=== PATIENT | female | born 1975 | race Caucasian/White ===

== ENCOUNTER 2018-09-23 17:07 | Emergency (ER) | payer SELFPAY ==
[2018-09-23 17:07] VITALS: BMI 33.6
[2018-09-23] MEDS ORDERED: Lactated Ringer's 1,000 ML IV STA (18:07)
--- NOTE | 2018-09-23 18:28 | ED PDOC ---
HPI: Female Pain Time Seen by Provider: 09/23/18 17:29 Chief Complaint (Nursing): Female Genitourinary Chief Complaint (Provider): Female Genitourinary History Per: Patient History/Exam Limitations: no limitations Onset/Duration Of Symptoms: Days (x11) Current Symptoms Are (Timing): Still Present Additional Complaint(s): 43 year old female with a history of anemia and fibroids presents to the ED with vaginal bleeding since September 12. Patient reports she bleeds through 5 or more pads a day with clots and occasional clots. She has had to be transfused in the past, last time was January 2018. She is currently scheduled to have a myomectomy. She said over the last two day she has been experiencing lightheadedness, dyspnea on exertion, fatigue, and generalized weakness and is concerned she needs a transfusion. [employer] [facility]: from the [facility] PMD: Dr. Sanjeev Manzano Abnormal Vaginal Bleeding: Yes Past Medical History Reviewed: Historical Data, Nursing Documentation, Vital Signs Vital Signs: Last Vital Signs Temp 98.4 F 09/23/18 17:16 Pulse 85 09/23/18 17:16 Resp 18 09/23/18 17:16 BP 126/84 09/23/18 17:16 Pulse Ox 99 09/23/18 17:16 - Medical History PMH: Anemia Other PMH: fibroids - Surgical History Surgical History: No Surg Hx - Family History Family History: States: Other Other Family History: fibroids - Social History Current smoker - smoking cessation education provided: No Ex-Smoker (has not smoked in the last 12 months): No Alcohol: Occasional - Immunization History Hx Tetanus Toxoid Vaccination: No Hx Influenza Vaccination: No Hx Pneumococcal Vaccination: No - Home Medications Home Medications: Ambulatory Orders Medication Instructions Recorded MedroxyPROGESTERone [Provera] 1 tab PO DAILY 12/18/17 Iron 65 mg PO DAILY 12/29/17 Naproxen Sodium 550 mg PO Q12 PRN 12/29/17 Benzonatate [Tessalon Perles] 100 mg PO TID #20 sgl 02/21/18 Cetirizine HCl [Zyrtec] 10 mg PO DAILY #20 capsule 02/21/18 Ibuprofen [Motrin] 600 mg PO Q6H #20 tab 02/21/18 Mometasone Furoate [Nasonex] 2 spray NS DAILY #1 bottle 02/21/18 Tranexamic Acid 1,300 mg PO TID #15 dose 09/23/18 - Allergies Allergies/Adverse Reactions: Allergies Allergy/AdvReac Type Severity Reaction Status Date / Time No Known Allergies Allergy Verified 09/23/18 17:14 Review of Systems ROS Statement: Except As Marked, All Systems Reviewed And Found Negative (and as per HPI) Constitutional: Positive for: Weakness (generalized), Other (fatigue) Cardiovascular: Positive for: Light Headedness Respiratory: Positive for: Other (dyspnea on exertion) Genitourinary Female: Positive for: Vaginal Bleeding Physical Exam - Reviewed Nursing Documentation Reviewed: Yes Vital Signs Reviewed: Yes - Physical Exam Appears: Positive for: No Acute Distress (tired) Head Exam: Positive for: ATRAUMATIC, NORMOCEPHALIC Skin: Positive for: Warm, Dry. Negative for: Pallor Eye Exam: Positive for: EOMI, PERRL ENT: Negative for: Pharyngeal Erythema, Tonsillar Exudate Neck: Positive for: Painless ROM, Supple Cardiovascular/Chest: Positive for: Regular Rate, Rhythm. Negative for: Murmur Respiratory: Positive for: Normal Breath Sounds. Negative for: Respiratory Distress Gastrointestinal/Abdominal: Positive for: Soft, Tenderness (mild suprapubic tenderness to palpation ). Negative for: Mass, Distended, Guarding, Rebound Back: Positive for: Normal Inspection. Negative for: Decreased ROM Extremity: Positive for: Normal ROM. Negative for: Deformity Lymphatic: Negative for: Adenopathy Neurologic/Psych: Positive for: Alert. Negative for: Motor/Sensory Deficits - Laboratory Results Result Diagrams: 09/23/18 18:47 09/23/18 18:47 - ECG O2 Sat by Pulse Oximetry: 99 (RA) Pulse Ox Interpretation: Normal Medical Decision Making Medical Decision Making: Time: 1806 Initial Impression: Vaginal Bleeding Rule out severe anemia Initial Plan: --Type and screen --CMP --Ferritin --Iron & TIBC --Urine dip --Urine preg --CBC with differentials --PTT --PT --Lactated ringers 745p Labs demonstrate minimal anemia. No clinically significant abnormalities DW pt findings. Will rx TXA and pt to followup at clinic this week Scribe Attestation: Documented by Shilpa Menon, acting as a scribe for Ida Alamo MD Provider Scribe Attestation: All medical record entries made by the Scribe were at my direction and personally dictated by me. I have reviewed the chart and agree that the record accurately reflects my personal performance of the history, physical exam, medical decision making, and the department course for this patient. I have also personally directed, reviewed, and agree with the discharge instructions and disposition Disposition - Clinical Impression Clinical Impression: Vaginal bleeding, Fibroid Counseled Patient/Family Regarding: Studies Performed, Diagnosis, Need For Followup, Rx Given - Disposition [facility] (FOLLOW UP AT CLINIC SOON POSSIBLE FOR FURTHER EVALUATION AND MANAGEMENT) Disposition: Routine/Home Disposition Time: 19:00 Condition: STABLE Prescriptions: Tranexamic Acid 1,300 mg PO TID #15 dose Instructions: Uterine Fibroids (DC) Forms: [facility] ED School/Work Excuse
[2018-09-23 19:04] LABS: PROTHROMBIN TIME 11.1 Seconds (9.8-13.1)
[2018-09-23 19:07] LABS: PARTIAL THROMBOPLASTIN TIME 28.8 Seconds (25.6-37.1)
[2018-09-23 19:08] LABS: BASO # 0.1 K/uL (0.0-0.2); BASO % 0.8 % (0.0-2.0); EOS # 0.1 K/uL (0.0-0.7); EOS % 1.7 % (0.0-4.0); HEMOGLOBIN 10.3 g/dL (12.0-16.0); LYMPH # 2.9 K/uL (1.0-4.3); LYMPH % 34.4 % (20.0-40.0); MEAN CELL VOLUME 73.8 fl (81.0-99.0); MEAN CORPUSCULAR HEMOGLOBIN 23.4 pg (27.0-31.0); MEAN CORPUSCULAR HGB CONC 31.7 g/dL (33.0-37.0); MEAN PLATELET VOLUME 9.5 fl (7.2-11.7); MONO # 0.6 K/uL (0.0-0.8); MONO % 6.6 % (0.0-10.0); NEUT # 4.8 K/uL (1.8-7.0); NEUT % 56.5 % (50.0-75.0); RBC 4.4 Mil/uL (3.80-5.20); RED CELL DISTRIBUTION WIDTH 16.6 % (11.5-14.5); WHITE BLOOD COUNT 8.5 K/uL (4.8-10.8)
[2018-09-23 19:10] LABS: IRON 49 ug/dL (37-170)
[2018-09-23 19:12] LABS: ALB/GLOB RATIO 1.2 (1.0-2.1); ALT/SGPT 61 U/L (9-52); AST/SGOT 44 U/L (14-36); BLOOD UREA NITROGEN 12 mg/dl (7-17); CALCIUM 9.5 mg/dL (8.4-10.2); GFR NON-AFRICAN AMERICAN > 60
[2018-09-23 19:19] LABS: % IRON SATURATION 10 % (20-55); TOTAL IRON BINDING CAPACITY 475 ug/dL (250-450)
[2018-09-23 19:48] LABS: FERRITIN 7.1 ng/Ml (6.24-137.0)
[2018-09-24 00:52] VITALS: BP 116/72; PULSE 81; RESP 18; TEMP 98.2; O2SAT 99
== END 2018-09-23 21:35 | disposition home or self-care (01) ==
LOC: H.ER 17:07
DX: N93.9 Abnormal uterine and vaginal bleeding, unspecified (principal); D64.9 Anemia, unspecified
CPT/HCPCS: 80053; 81025; 82728; 83540; 83550; 85025; 85610; 85730; 86850; 86900; 99285; J7120

== ENCOUNTER 2018-10-15 08:11 | Day surgery (SDC) | payer SELFPAY ==
[2018-10-08 19:34] VITALS: BMI 32.0
[2018-10-15] MEDS ORDERED: Lactated Ringer's 1,000 ML IV ONE (08:58)
[2018-10-15 09:03] LABS: BASO # 0.1 K/uL (0.0-0.2); BASO % 0.9 % (0.0-2.0); EOS # 0.2 K/uL (0.0-0.7); EOS % 2.3 % (0.0-4.0); HEMOGLOBIN 11.4 g/dL (12.0-16.0); LYMPH # 2.5 K/uL (1.0-4.3); LYMPH % 33.5 % (20.0-40.0); MEAN CELL VOLUME 73.6 fl (81.0-99.0); MEAN CORPUSCULAR HEMOGLOBIN 23.1 pg (27.0-31.0); MEAN CORPUSCULAR HGB CONC 31.4 g/dL (33.0-37.0); MEAN PLATELET VOLUME 9.4 fl (7.2-11.7); MONO # 0.4 K/uL (0.0-0.8); MONO % 5.6 % (0.0-10.0); NEUT # 4.3 K/uL (1.8-7.0); NEUT % 57.7 % (50.0-75.0); NRBC % 0.2 % (0.0-0.0); RBC 4.91 Mil/uL (3.80-5.20); RED CELL DISTRIBUTION WIDTH 16.6 % (11.5-14.5); WHITE BLOOD COUNT 7.5 K/uL (4.8-10.8)
[2018-10-15] MEDS ORDERED: Propofol 10 mg/ml Inj (20 ML) ONE (09:13)
[2018-10-15] MEDS ORDERED: Midazolam 2 MG/2 ML VIAL ONE (10:32)
[2018-10-15] MEDS ORDERED: Dexamethasone 4 mg/1 ml ONE (10:37)
[2018-10-15] MEDS ORDERED: Silver Nitrate Topical - Stick ONE (11:13)
[2018-10-15] MEDS ORDERED: HYDROmorphone 0.5 mg/0.5 ml ISec IVP PRN (11:26)
[2018-10-15] MEDS ORDERED: Lactated Ringer's 1,000 ML IV SCH (11:30)
[2018-10-15 12:34] VITALS: TEMP 97.7
[2018-10-15 12:51] VITALS: RESP 18
[2018-10-15 14:49] VITALS: O2SAT 98
[2018-10-15 15:39] VITALS: BP 117/74; PULSE 87
--- NOTE | 2018-10-15 23:19 | OP ---
PROCEDURE DATE: 10/15/2018 PREOPERATIVE DIAGNOSIS: Heavy menstrual bleeding. POSTOPERATIVE DIAGNOSIS: Heavy menstrual bleeding. PROCEDURE: Hysteroscopy with endometrial ablation with Novasure. SURGEON: Sonny Spain MD ESTIMATED BLOOD LOSS: 5 mL. INTRAVENOUS FLUIDS: 700 mL lactated Ringer's. URINE OUTPUT: Approximately 20 mL, drained with a red rubber catheter. Cavity length for procedure is 5.5 cm, cavity width 4.6 cm, power level 139 gutierres. ABLATION TIME: 1 minute 12 seconds. FINDINGS: The uterus was anteverted with normal size. Adnexa were normal bilaterally. No mass was palpated upon hysteroscopic exam. Proliferative endometrium was seen and no other direct intraluminal lesions noted. DESCRIPTION OF PROCEDURE: The patient was taken to the operating room and given anesthesia without difficulty. She was prepped and draped in the normal sterile fashion in the dorsal lithotomy position. A bimanual exam was performed with the findings of above. Following this, a weighted speculum was placed in the patient's vagina. The anterior lip of the cervix was grasped with a single tooth tenaculum. The uterus was then serially dilated and sounded to approximately 9 cm. The hysteroscope was then introduced into the uterine cavity using sterile saline as a distending media with the attached camera. The endometrial cavity revealed proliferative endometrium throughout, and no direct intraluminal lesions were seen. The ostia were noted at the coronal areas bilaterally. Pictures of the endometrial cavity were then taken, and the hysteroscope was then removed. The Novasure device was then activated and unable to check all parameters and make sure it was functioning well. The ovary was opened outside of the patient and appeared intact. The cavity length was then assessed using the sound, and this value was then placed in the device. Following this, the Novasure was then introduced. The cavity width was assessed, and this value was also placed in the device. The endometrial cavity was then assessed, and all was found to be intact. The Novasure device was then enabled, and ablation was undertaken for 1 minute 12 seconds. Following this, the device was then removed. The hysteroscopy was again performed, and a good ablation was then noted throughout. Pictures were again taken. All instruments were then removed. Small amount of bleeding was seen at the tenaculum site, and this was stopped with silver nitrate. The patient was then repositioned, awakened from anesthesia and transferred to recovery room in stable condition. She would be discharged home today with Motrin for pain and informed to continue pelvic rest and follow up in the office in two weeks for postop evaluation. Sonny Spain MD
== END 2018-10-15 16:30 | disposition home or self-care (01) ==
LOC: H.OPSURG 08:11
PROVIDERS: ATTEND Obstetrics & Gynecology
DX: N93.9 Abnormal uterine and vaginal bleeding, unspecified (principal); D25.9 Leiomyoma of uterus, unspecified; K21.9 Gastro-esophageal reflux disease without esophagitis; N92.0 Excessive and frequent menstruation with regular cycle
CPT/HCPCS: 36415; 58563; 85025; 86850; 86900; J1100; J1885; J2001; J2250; J2405; J2704; J2765; J3010; J7030; J7120

== ENCOUNTER 2018-10-17 09:55 | Emergency (ER) | payer SELFPAY ==
[2018-10-17 09:59] VITALS: BMI 32.0
[2018-10-17 10:00] VITALS: O2SAT 100
[2018-10-17] MEDS ORDERED: Sodium Chloride 0.9% 1,000 ML IV STA (10:16)
[2018-10-17 10:39] LABS: BASO # 0.1 K/uL (0.0-0.2); EOS # 0.1 K/uL (0.0-0.7); EOS % 1.4 % (0.0-4.0); HEMOGLOBIN 10.2 g/dL (12.0-16.0); LYMPH # 3.3 K/uL (1.0-4.3); LYMPH % 39.4 % (20.0-40.0); MEAN CELL VOLUME 74.8 fl (81.0-99.0); MEAN CORPUSCULAR HEMOGLOBIN 22.8 pg (27.0-31.0); MEAN CORPUSCULAR HGB CONC 30.5 g/dL (33.0-37.0); MEAN PLATELET VOLUME 9.2 fl (7.2-11.7); MONO # 0.5 K/uL (0.0-0.8); MONO % 6.4 % (0.0-10.0); NEUT # 4.4 K/uL (1.8-7.0); NEUT % 51.8 % (50.0-75.0); NRBC % 0.2 % (0.0-0.0); RBC 4.48 Mil/uL (3.80-5.20); RED CELL DISTRIBUTION WIDTH 16.9 % (11.5-14.5); WHITE BLOOD COUNT 8.5 K/uL (4.8-10.8)
[2018-10-17 10:54] LABS: ALB/GLOB RATIO 1.1 (1.0-2.1); ALBUMIN 3.7 g/dL (3.5-5.0); ALT/SGPT 61 U/L (9-52); AST/SGOT 37 U/L (14-36); BLOOD UREA NITROGEN 10 mg/dl (7-17); CALCIUM 8.5 mg/dL (8.4-10.2); GFR NON-AFRICAN AMERICAN > 60
--- NOTE | 2018-10-17 11:45 | CT ---
Date of service: 10/17/2018 PROCEDURE: CT HEAD WITHOUT CONTRAST. HISTORY: severe headache neck pain COMPARISON: None available. TECHNIQUE: Axial computed tomography images were obtained through the head/brain without intravenous contrast. Radiation dose: Total exam DLP = 819.47 mGy-cm. This CT exam was performed using one or more of the following dose reduction techniques: Automated exposure control, adjustment of the mA and/or kV according to patient size, and/or use of iterative reconstruction technique. FINDINGS: HEMORRHAGE: No intracranial hemorrhage. BRAIN: Normal moctezuma-white matter differentiation and density are appreciated throughout the cerebrum and cerebellum with the brainstem appearing unremarkable as well. There is no mass effect. There is no suspicious extra-axial fluid collection and the midline brain anatomy appears diffusely unremarkable. VENTRICLES: Unremarkable. No hydrocephalus. CALVARIUM: Unremarkable. PARANASAL SINUSES: Unremarkable as visualized. No significant inflammatory changes. MASTOID AIR CELLS: Unremarkable as visualized. No inflammatory changes. OTHER FINDINGS: None. IMPRESSION: Unremarkable noncontrast CT of the Head.
--- NOTE | 2018-10-17 11:47 | CT ---
Date of service: 10/17/2018 PROCEDURE: CT Cervical Spine without contrast HISTORY: neck pain COMPARISON: None available. TECHNIQUE: Axial computed tomography images were obtained of the cervical spine without the use of intravenous contrast. Coronal and sagittal reformatted images were created and reviewed. Radiation dose: Total exam DLP = 366.71 mGy-cm. This CT exam was performed using one or more of the following dose reduction techniques: Automated exposure control, adjustment of the mA and/or kV according to patient size, and/or use of iterative reconstruction technique. FINDINGS: VERTEBRAE: Straightened curvature. No fracture or spondylolisthesis appreciable. No destructive bony lesion. DISCS/SPINAL CANAL/NEURAL FORAMINA: No significant central canal or neural foraminal stenosis. Discs heights are grossly preserved. PARASPINAL SOFT TISSUES: Unremarkable. OTHER FINDINGS: None. IMPRESSION: Straightened curvature without fracture or spondylolisthesis. No bony central canal or neural foraminal stenosis or gross disc herniation pattern. MRI is available follow-up if clinically warranted.
[2018-10-17 14:19] VITALS: RESP 16
--- NOTE | 2018-10-17 14:19 | ED PDOC ---
HPI: Headache Time Seen by Provider: 10/17/18 10:09 Chief Complaint (Nursing): Headache Chief Complaint (Provider): Headache History Per: Patient History/Exam Limitations: no limitations Onset/Duration Of Symptoms: Hrs Associated Symptoms: Nausea. denies: Photophobia Additional Complaint(s): 43 years old female with history of fibroids and anemia presents to ER for evaluation of headache associated with nausea and dizziness started this morning. Patient reports headache is low onset, diffused and radiating to neck. She reports she had endometrial implantation on Sunday. Patient denies any light sensitivity, fever, syncope, vaginal bleeding, chest pain or shortness of breath. PMD: non provided Past Medical History Reviewed: Historical Data, Nursing Documentation, Vital Signs Vital Signs: Last Vital Signs Temp 98.3 F 10/17/18 09:59 Pulse 75 10/17/18 09:59 Resp 20 10/17/18 09:59 BP 143/83 10/17/18 09:59 Pulse Ox 100 10/17/18 09:59 - Medical History PMH: Anemia Denies: Chronic Kidney Disease Other PMH: Fibroids - Surgical History Other surgeries: endometrial implantation - Family History Family History: States: Unknown Family Hx - Social History Current smoker - smoking cessation education provided: No Alcohol: Social Drugs: Denies - Immunization History Hx Tetanus Toxoid Vaccination: No Hx Influenza Vaccination: No Hx Pneumococcal Vaccination: No - Home Medications Home Medications: Ambulatory Orders Medication Instructions Recorded Iron 65 mg PO DAILY 12/29/17 Ibuprofen [Motrin] 600 mg PO Q6H #20 tab 02/21/18 Ibuprofen [Motrin Tab] 600 mg PO Q6 PRN #15 tab 10/17/18 Ondansetron ODT [Zofran ODT] 4 mg PO Q6 PRN #10 odt 10/17/18 - Allergies Allergies/Adverse Reactions: Allergies Allergy/AdvReac Type Severity Reaction Status Date / Time No Known Allergies Allergy Verified 10/08/18 19:34 Review of Systems ROS Statement: Except As Marked, All Systems Reviewed And Found Negative Constitutional: Negative for: Fever Eyes: Negative for: Vision Change (light sensitivity) Cardiovascular: Negative for: Chest Pain Respiratory: Negative for: Shortness of Breath Gastrointestinal: Positive for: Nausea Genitourinary Female: Negative for: Vaginal Bleeding Neurological: Positive for: Headache, Dizziness. Negative for: Other (Syncope) Physical Exam - Reviewed Nursing Documentation Reviewed: Yes Vital Signs Reviewed: Yes - Physical Exam Appears: Positive for: Non-toxic, No Acute Distress Head Exam: Positive for: ATRAUMATIC, NORMOCEPHALIC Skin: Positive for: Normal Color, Warm, Dry Eye Exam: Positive for: Normal appearance, EOMI, PERRL Neck: Positive for: Normal, Painless ROM, Supple Cardiovascular/Chest: Positive for: Regular Rate, Rhythm. Negative for: Murmur Respiratory: Positive for: Normal Breath Sounds. Negative for: Respiratory Distress Gastrointestinal/Abdominal: Positive for: Normal Exam, Soft. Negative for: Tenderness Back: Positive for: Normal Inspection. Negative for: L CVA Tenderness, R CVA Tenderness Extremity: Positive for: Normal ROM. Negative for: Pedal Edema, Deformity Neurologic/Psych: Positive for: Alert, Oriented (x3), Gait (stable) - Laboratory Results Result Diagrams: 10/17/18 10:30 10/17/18 10:30 - ECG O2 Sat by Pulse Oximetry: 100 (RA) Pulse Ox Interpretation: Normal Medical Decision Making Medical Decision Making: Time: 1015 Initial plan: --CT brain and C-spine --Labs --NaCl 1,000 ml IV --Toradol 10 mg IVP --Acetaminophen 650 mg PO --Valium 5 mg PO --Reglan [address] Head FINDINGS: HEMORRHAGE: No intracranial hemorrhage. BRAIN: Normal moctezuma-white matter differentiation and density are appreciated throughout the cerebrum and cerebellum with the brainstem appearing unremarkable as well. There is no mass effect. There is no suspicious extra-axial fluid collection and the midline brain anatomy appears diffusely unremarkable. VENTRICLES: Unremarkable. No hydrocephalus. CALVARIUM: Unremarkable. PARANASAL SINUSES: Unremarkable as visualized. No significant inflammatory changes. MASTOID AIR CELLS: Unremarkable as visualized. No inflammatory changes. OTHER FINDINGS: None. IMPRESSION: Unremarkable noncontrast CT of the Head. 1143 CT C-Spine FINDINGS: VERTEBRAE: Straightened curvature. No fracture or spondylolisthesis appreciable. No destructive bony lesion. DISCS/SPINAL CANAL/NEURAL FORAMINA: No significant central canal or neural foraminal stenosis. Discs heights are grossly preserved. PARASPINAL SOFT TISSUES: Unremarkable. OTHER FINDINGS: None. IMPRESSION: Straightened curvature without fracture or spondylolisthesis. No bony central canal or neural foraminal stenosis or gross disc herniation pattern. MRI is available follow-up if clinically warranted. 1415 --Blood work shows mild stable anemia. Patient improved with non opioid therapy --Discussed risks of SAH and offered for testing with LP and/or CT angio but patient declined --Patient is ambulatory in the ED with normal gait and feels well --Will discharge with a prescription of Zofran OTD and Motrin --Instructed patient to follow up with a PMD Scribe Attestation: Documented by Madai West, acting as a scribe for Chente Fields MD. Provider Scribe Attestation: All medical record entries made by the Scribe were at my direction and personally dictated by me. I have reviewed the chart and agree that the record accurately reflects my personal performance of the history, physical exam, medical decision making, and the department course for this patient. I have also personally directed, reviewed, and agree with the discharge instructions and disposition. Disposition - Clinical Impression Clinical Impression: Headache, Nausea - Disposition Referrals: [facility] [Outside] Disposition: Routine/Home Disposition Time: 14:15 Condition: STABLE Additional Instructions: Return to ER for any return of headache, worse or new symptoms or any concern. Prescriptions: Ibuprofen [Motrin Tab] 600 mg PO Q6 PRN #15 tab PRN Reason: Pain, Moderate (4-7) Ondansetron ODT [Zofran ODT] 4 mg PO Q6 PRN #10 odt PRN Reason: Nausea/Vomiting Instructions: Headache, Adult, Nausea and Vomiting, Adult Forms: [employer] (Mongolian) Print Language: TONGAN
[2018-10-17 14:37] VITALS: BP 116/78; PULSE 78; TEMP 98.2
--- NOTE | 2018-10-18 00:11 | CARD ---
APPROVED REPORT Date of service: 10/17/2018 EKG Measurement Heart [id number] <Conclusion> Normal sinus rhythm Normal ECG
== END 2018-10-17 14:47 | disposition home or self-care (01) ==
LOC: H.ER 09:55
DX: R51 Headache (principal); R11.0 Nausea; D64.9 Anemia, unspecified
CPT/HCPCS: 70450; 72125; 80053; 81025; 84484; 85025; 93005; 96361; 96374; 96375; 99285; J1885; J2765; J7030